=== PATIENT | male | born 1975 | race African-American/Black ===

== ENCOUNTER 2018-03-06 12:41 | Emergency (ER) | payer OTHER ==
[~2018-03-06] VITALS: Ht 182.9 cm; Wt 101.2 kg
[2018-03-06 13:00] VITALS: BP 109/71
[2018-03-06] MEDS ORDERED: SODIUM CHLORIDE 0.9% 1,000 ML IV ONE ×2 (13:24)
[2018-03-06] MEDS ORDERED: InsuLIN REG 1unit/0.01ml Soln (100units/ml) SC ONE (13:30)
[2018-03-06 14:43] LABS: Urine WBC None Seen /hpf (0 - 3)
[2018-03-06 15:02] LABS: Basophils # (auto) 0 uL; Basophils % (auto) 0.6 % (0.0-2.0); Eosinophils # (auto) 0.1 uL; Hematocrit 44.8 % (41.0-53.0); Hemoglobin 15.6 g/dL (13.5-17.5); Lymphocytes # (auto) 2.4 uL; Lymphocytes % (auto) 34.9 % (10.0-50.0); Mean Corpuscular Hemoglobin 29.8 pg (28.0-32.0); Mean Corpuscular Hgb Conc. 34.7 g/dL (32.0-36.0); Mean Corpuscular Volume 85.8 fL (80.0-100.0); Monocytes # (auto) 0.4 uL; Monocytes % (auto) 6.2 % (0.0-12.0); Neutrophils # (auto) 3.9 uL; Neutrophils % (auto) 57.3 % (37.0-80.0); Nucleated Red Blood Cells % 0.3 %; Platelet Count (auto) 184 10^3/uL (140-450); Red Blood Cells 5.23 10^6/uL (4.5-5.90); White Blood Cell 6.8 10^3/uL (4.4-10.8)
[2018-03-06 15:02] LABS: Urine Bacteria NONE SEEN /hpf (None Seen); Urine Blood Negative /uL (Negative); Urine Specific Gravity 1.034 (1.001-1.035)
[2018-03-06 15:19] LABS: Albumin 3.8 g/dL (3.4-5.0); BUN/Creatinine Ratio 15.4; Bilirubin, Total 0.7 mg/dL (0.2-1.0); Calcium 8.4 mg/dL (8.5-10.1); Potassium 4.6 mmol/L (3.5-5.1); Total Protein 7.5 g/dL (6.4-8.2)
== END 2018-03-06 18:20 | disposition home or self-care (01) ==
LOC: ER 12:41
DX: E11.65 Type 2 diabetes mellitus with hyperglycemia (principal); N39.0 Urinary tract infection, site not specified; J45.909 Unspecified asthma, uncomplicated; R42 Dizziness and giddiness; Z79.4 Long term (current) use of insulin
CPT/HCPCS: 36415; 71046; 80053; 81001; 82962; 83036; 84484; 85025; 96360; 96361; 96372; 99285; J1815; J7030

== ENCOUNTER 2021-02-23 13:51 | Emergency (ER) | payer OTHER ==
[~2021-02-23] VITALS: Ht 180.3 cm; Wt 117.9 kg
[2021-02-23] MEDS ORDERED: SODIUM CHLORIDE 0.9% 1,000 ML IV ONE (14:00)
[2021-02-23] MEDS ORDERED: ONDANSETRON HCL 4 MG/2 ML VIAL IV ONE (14:00)
[2021-02-23 14:23] LABS: Basophils # (auto) 0 10 ^3/uL (0-0.2); Basophils % (auto) 0.1 % (0.0-2.0); Eosinophils # (auto) 0.1 10 ^3/uL (0-0.8); Eosinophils % (auto) 0.8 % (0.0-7.0); Hematocrit 41.5 % (41.0-53.0); Hemoglobin 14.1 g/dL (13.5-17.5); Lymphocytes # (auto) 0.5 10 ^3/uL (0.4-5.4); Lymphocytes % (auto) 6.4 % (10.0-50.0); Mean Corpuscular Hgb Conc. 33.9 g/dL (32.0-36.0); Mean Corpuscular Volume 88.3 fL (80.0-100.0); Monocytes # (auto) 0.4 10 ^3/uL (0-1.3); Monocytes % (auto) 5.5 % (0.0-12.0); Neutrophils # (auto) 6.3 10 ^3/uL (1.6-8.6); Neutrophils % (auto) 87.2 % (37.0-80.0); Platelet Count (auto) 159 10^3/uL (140-450); Red Cell Distribution Width 13.3 % (11.8-14.3); White Blood Cell 7.2 10^3/uL (4.4-10.8)
[2021-02-23 14:48] LABS: Albumin 3.3 g/dL (3.4-5.0); Calcium 8.5 mg/dL (8.5-10.1); Potassium 4.5 mmol/L (3.5-5.1)
[2021-02-23 14:54] LABS: BUN/Creatinine Ratio 12.8; Total Protein 6.5 g/dL (6.4-8.2)
[2021-02-23 15:36] LABS: Urine Bacteria NONE SEEN /hpf (None Seen); Urine Blood 1+ /uL (Negative); Urine Mucus FEW (None Seen); Urine WBC 1 /hpf (0 - 3)
[2021-02-23 15:52] VITALS: BP 169/95
== END 2021-02-23 16:58 | disposition home or self-care (01) ==
LOC: ER 13:51
DX: E11.65 Type 2 diabetes mellitus with hyperglycemia (principal); R11.2 Nausea with vomiting, unspecified; R19.7 Diarrhea, unspecified; R10.84 Generalized abdominal pain; J45.909 Unspecified asthma, uncomplicated; I10 Essential (primary) hypertension; Z90.89 Acquired absence of other organs
CPT/HCPCS: 36415; 74176; 80053; 81001; 83690; 85025; 96361; 96374; 99284; J2405; J7030

== ENCOUNTER 2021-02-24 05:44 | Emergency (ER) | payer OTHER ==
[~2021-02-24] VITALS: Ht 180.3 cm; Wt 115.7 kg
[2021-02-24 06:37] LABS: Basophils # (auto) 0 10 ^3/uL (0-0.2); Basophils % (auto) 0.3 % (0.0-2.0); Eosinophils # (auto) 0.1 10 ^3/uL (0-0.8); Eosinophils % (auto) 1.1 % (0.0-7.0); Hematocrit 37.1 % (41.0-53.0); Hemoglobin 12.6 g/dL (13.5-17.5); Lymphocytes # (auto) 1.6 10 ^3/uL (0.4-5.4); Lymphocytes % (auto) 30.6 % (10.0-50.0); Mean Corpuscular Hemoglobin 29.9 pg (28.0-32.0); Mean Corpuscular Hgb Conc. 34.1 g/dL (32.0-36.0); Mean Corpuscular Volume 87.7 fL (80.0-100.0); Monocytes # (auto) 0.4 10 ^3/uL (0-1.3); Monocytes % (auto) 7.5 % (0.0-12.0); Neutrophils # (auto) 3.1 10 ^3/uL (1.6-8.6); Neutrophils % (auto) 60.5 % (37.0-80.0); Nucleated Red Blood Cells % 0.2 %; Platelet Count (auto) 157 10^3/uL (140-450); Red Blood Cells 4.23 10^6/uL (4.5-5.90); Red Cell Distribution Width 13.4 % (11.8-14.3); White Blood Cell 5.1 10^3/uL (4.4-10.8)
[2021-02-24 06:54] LABS: Albumin 3.1 g/dL (3.4-5.0); Calcium 7.8 mg/dL (8.5-10.1); Potassium 3.8 mmol/L (3.5-5.1)
[2021-02-24 06:57] LABS: BUN/Creatinine Ratio 14.4; Bilirubin, Total 0.8 mg/dL (0.2-1.0); Total Protein 6.1 g/dL (6.4-8.2)
[2021-02-24] MEDS ORDERED: SODIUM CHLORIDE 0.9% 1,000 ML IVB ONE (07:30)
[2021-02-24 08:52] VITALS: BP 157/85
== END 2021-02-24 09:04 | disposition home or self-care (01) ==
LOC: ER 05:44
DX: K52.9 Noninfective gastroenteritis and colitis, unspecified (principal); E11.9 Type 2 diabetes mellitus without complications; I10 Essential (primary) hypertension
CPT/HCPCS: 36415; 80053; 85025; 96360; 99285; J7030

== ENCOUNTER 2021-12-19 05:41 | Emergency (ER) | payer OTHER ==
[~2021-12-19] VITALS: Ht 177.8 cm; Wt 122.5 kg
[2021-12-19] MEDS ORDERED: HYDROcodone-ACET 5/325MG TAB PO ONE (06:15)
[2021-12-19 08:37] LABS: Basophils # (auto) 0.1 10 ^3/uL (0-0.2); Basophils % (auto) 1.2 % (0.0-2.0); Eosinophils # (auto) 0.1 10 ^3/uL (0-0.8); Eosinophils % (auto) 1.4 % (0.0-7.0); Hematocrit 40.3 % (41.0-53.0); Hemoglobin 13.3 g/dL (13.5-17.5); Lymphocytes % (auto) 27.7 % (10.0-50.0); Mean Corpuscular Hemoglobin 28.5 pg (28.0-32.0); Mean Corpuscular Volume 86.5 fL (80.0-100.0); Monocytes # (auto) 0.4 10 ^3/uL (0-1.3); Monocytes % (auto) 6.1 % (0.0-12.0); Neutrophils # (auto) 4.6 10 ^3/uL (1.6-8.6); Neutrophils % (auto) 63.6 % (37.0-80.0); Nucleated Red Blood Cells % 0.1 %; Red Blood Cells 4.66 10^6/uL (4.5-5.90); Red Cell Distribution Width 13.1 % (11.8-14.3); White Blood Cell 7.3 10^3/uL (4.4-10.8)
[2021-12-19 08:50] LABS: Calcium 8.8 mg/dL (8.5-10.1); Potassium 4.1 mmol/L (3.5-5.1)
[2021-12-19 08:51] LABS: Urine Bacteria NONE SEEN /hpf (None Seen); Urine Blood 2+ /uL (Negative); Urine Hyaline Cast FEW /lpf (0 - 2); Urine Mucus FEW (None Seen); Urine Specific Gravity 1.026 (1.001-1.035); Urine WBC 2 /hpf (0 - 3)
[2021-12-19 08:53] LABS: BUN/Creatinine Ratio 19.2; Bilirubin, Total 0.3 mg/dL (0.2-1.0); Total Protein 6.2 g/dL (6.4-8.2)
[2021-12-19 10:40] VITALS: BP 155/91
== END 2021-12-19 10:50 | disposition home or self-care (01) ==
LOC: ER 05:41
DX: R10.9 Unspecified abdominal pain (principal); J45.909 Unspecified asthma, uncomplicated; E11.9 Type 2 diabetes mellitus without complications; E78.5 Hyperlipidemia, unspecified; I10 Essential (primary) hypertension; Z90.49 Acquired absence of other specified parts of digestive tract
CPT/HCPCS: 36415; 74176; 80053; 81001; 85025

== ENCOUNTER 2021-12-27 07:57 | Emergency (ER) | payer OTHER ==
[~2021-12-27] VITALS: Ht 177.8 cm; Wt 127.0 kg
[2021-12-27] MEDS ORDERED: cefTRIAXone SOD 1,000 MG VL IM ONE (09:15)
[2021-12-27] MEDS ORDERED: ACETAMINOPHEN 325 MG TAB PO ONE (09:15)
[2021-12-27] MEDS ORDERED: SULF800T7 PO ×2 (09:38→15:37)
[2021-12-27 10:10] VITALS: BP 182/83
== END 2021-12-27 10:33 | disposition home or self-care (01) ==
LOC: ER 07:57
DX: L02.415 Cutaneous abscess of right lower limb (principal)
CPT/HCPCS: 10060; 76881; 96372; 99284; J0696

== ENCOUNTER 2021-12-29 15:57 | Emergency (ER) | payer OTHER ==
[~2021-12-29] VITALS: Ht 182.9 cm; Wt 127.0 kg
[~2021-12-29 15:57] MED LIST: SULF800T7 PO
[2021-12-29 17:16] VITALS: BP 188/100
[2021-12-29] MEDS ORDERED: cloNIDine HCL 0.1 MG TAB PO ONE (17:45)
[2021-12-29] MEDS ORDERED: CEPH500T PO (17:57)
== END 2021-12-29 18:27 | disposition home or self-care (01) ==
LOC: ER 15:57
DX: L02.415 Cutaneous abscess of right lower limb (principal); I10 Essential (primary) hypertension; J45.909 Unspecified asthma, uncomplicated; E11.9 Type 2 diabetes mellitus without complications; E78.5 Hyperlipidemia, unspecified; Z90.49 Acquired absence of other specified parts of digestive tract; Z79.899 Other long term (current) drug therapy

== ENCOUNTER 2021-12-31 13:39 | Emergency (ER) | payer OTHER ==
[~2021-12-31] VITALS: Ht 177.8 cm; Wt 127.0 kg
[~2021-12-31 13:39] MED LIST changes: +CEPH500T PO
[2021-12-31 14:02] VITALS: BP 189/94
== END 2021-12-31 14:35 | disposition home or self-care (01) ==
LOC: ER 13:39
DX: L02.214 Cutaneous abscess of groin (principal); I10 Essential (primary) hypertension; E11.9 Type 2 diabetes mellitus without complications; E78.5 Hyperlipidemia, unspecified; J45.909 Unspecified asthma, uncomplicated; Z90.49 Acquired absence of other specified parts of digestive tract; Z79.899 Other long term (current) drug therapy

== ENCOUNTER 2022-05-19 12:08 | Emergency (ER) | payer OTHER ==
[~2022-05-19] VITALS: Ht 177.8 cm; Wt 117.9 kg
[2022-05-19] MEDS ORDERED: SODIUM CHLORIDE 0.9% 1,000 ML IV ONE (12:45)
[2022-05-19 13:17] LABS: Basophils # (auto) 0.1 10 ^3/uL (0-0.2); Eosinophils # (auto) 0 10 ^3/uL (0-0.8); Eosinophils % (auto) 0.6 % (0.0-7.0); Hematocrit 36.3 % (41.0-53.0); Hemoglobin 11.8 g/dL (13.5-17.5); Lymphocytes # (auto) 0.4 10 ^3/uL (0.4-5.4); Lymphocytes % (auto) 7.3 % (10.0-50.0); Mean Corpuscular Hemoglobin 28.1 pg (28.0-32.0); Mean Corpuscular Hgb Conc. 32.5 g/dL (32.0-36.0); Mean Corpuscular Volume 86.4 fL (80.0-100.0); Monocytes # (auto) 0.7 10 ^3/uL (0-1.3); Monocytes % (auto) 13.8 % (0.0-12.0); Neutrophils % (auto) 77.3 % (37.0-80.0); Red Cell Distribution Width 13.4 % (11.8-14.3); White Blood Cell 5.2 10^3/uL (4.4-10.8)
[2022-05-19 13:33] LABS: Calcium 8.2 mg/dL (8.5-10.1); Potassium 3.9 mmol/L (3.5-5.1)
[2022-05-19 13:39] LABS: BUN/Creatinine Ratio 11.4; Bilirubin, Total 0.6 mg/dL (0.2-1.0); CRP High Sensitivity 1.34 mg/dL (< 0.3); Total Protein 5.3 g/dL (6.4-8.2)
[2022-05-19] MEDS ORDERED: METH4PAK PO (14:39)
[2022-05-19] MEDS ORDERED: AZIT1POW PO (14:39)
[2022-05-19] MEDS ORDERED: AZITHROMYCIN 500MG/ 250ML 250 ML IV ONE (14:45)
[2022-05-19] MEDS ORDERED: methylPREDNISolone SOD SUCC 125 MG/2 ML VL IV ONE (14:45)
[2022-05-19] MEDS ORDERED: ACETAMINOPHEN 325 MG TAB PO ONE (15:30)
[2022-05-19] MEDS ORDERED: cloNIDine HCL 0.1 MG TAB PO ONE (20:00)
[2022-05-19 20:53] VITALS: BP 182/92
== END 2022-05-19 21:07 | disposition home or self-care (01) ==
LOC: ER 12:08
DX: U07.1 COVID-19 (principal); I10 Essential (primary) hypertension; J45.909 Unspecified asthma, uncomplicated; E11.9 Type 2 diabetes mellitus without complications; E78.5 Hyperlipidemia, unspecified; Z90.49 Acquired absence of other specified parts of digestive tract; Z79.899 Other long term (current) drug therapy
CPT/HCPCS: 36415; 71046; 80053; 82728; 84484; 85025; 86141; 87426; 93005; 96365; 96366; 96375; 99285; J0456; J2930; J7030

== ENCOUNTER 2022-06-21 11:01 | Emergency (ER) | payer OTHER ==
[~2022-06-21] VITALS: Ht 180.3 cm; Wt 127.0 kg
[~2022-06-21 11:01] MED LIST changes: +AZIT1POW PO; +METH4PAK PO
[2022-06-21] MEDS ORDERED: cloNIDine HCL 0.1 MG TAB PO ONE (11:45)
[2022-06-21 13:56] LABS: Basophils # (auto) 0.1 10 ^3/uL (0-0.2); Basophils % (auto) 0.9 % (0.0-2.0); Eosinophils # (auto) 0.1 10 ^3/uL (0-0.8); Eosinophils % (auto) 1.4 % (0.0-7.0); Hematocrit 35.9 % (41.0-53.0); Hemoglobin 11.6 g/dL (13.5-17.5); Lymphocytes # (auto) 1.9 10 ^3/uL (0.4-5.4); Lymphocytes % (auto) 26.7 % (10.0-50.0); Mean Corpuscular Hemoglobin 27.6 pg (28.0-32.0); Mean Corpuscular Hgb Conc. 32.2 g/dL (32.0-36.0); Mean Corpuscular Volume 85.9 fL (80.0-100.0); Monocytes # (auto) 0.4 10 ^3/uL (0-1.3); Neutrophils # (auto) 4.6 10 ^3/uL (1.6-8.6); Red Blood Cells 4.18 10^6/uL (4.5-5.90); Red Cell Distribution Width 13.6 % (11.8-14.3); White Blood Cell 7.1 10^3/uL (4.4-10.8)
[2022-06-21 14:16] LABS: Albumin 2.1 g/dL (3.4-5.0); BUN/Creatinine Ratio 12.8; Calcium 8.2 mg/dL (8.5-10.1); Potassium 5.1 mmol/L (3.5-5.1)
[2022-06-21 14:19] LABS: Bilirubin, Total 0.7 mg/dL (0.2-1.0); Total Protein 5.2 g/dL (6.4-8.2)
[2022-06-21 16:02] VITALS: BP 144/79
== END 2022-06-21 16:18 | disposition home or self-care (01) ==
LOC: ER 11:01
DX: I10 Essential (primary) hypertension (principal); E43 Unspecified severe protein-calorie malnutrition; E11.9 Type 2 diabetes mellitus without complications; E78.5 Hyperlipidemia, unspecified; J45.909 Unspecified asthma, uncomplicated; Z68.39 Body mass index [BMI] 39.0-39.9, adult; Z90.49 Acquired absence of other specified parts of digestive tract; Z79.2 Long term (current) use of antibiotics; Z79.899 Other long term (current) drug therapy
CPT/HCPCS: 36415; 80053; 84484; 93005

== ENCOUNTER 2022-08-05 00:20 | Emergency (ER) | payer OTHER ==
[~2022-08-05] VITALS: Ht 177.8 cm; Wt 270.0 kg
[2022-08-05 00:20] VITALS: BP 154/78
== END 2022-08-05 07:33 | disposition left against medical advice (07) ==
LOC: ER 00:20
DX: M79.604 Pain in right leg (principal); Z53.21 Procedure and treatment not carried out due to patient leaving prior to being seen by health care provider